=== PATIENT | male | born 1960 | race Caucasian/White ===

== ENCOUNTER 2017-12-16 07:11 | Inpatient (IN) | payer BC, OTHER ==
[~2017-12-16] VITALS: Ht 182.9 cm; Wt 114.4 kg
[2017-12-16] MEDS ORDERED: SODIUM CHLORIDE 0.9% 1000ML 1,000 ML IV STA (07:24)
[2017-12-16] MEDS ORDERED: DILTIAZEM BOLUS / DRIP IV STA (07:24)
[2017-12-16 07:31] LABS: BASO % 0.2 %; BASO ABS # 0.02 K/uL (0-0.2); EOS % 0.4 %; EOS ABS # 0.05 K/uL (0-0.5); HEMATOCRIT 46.2 % (42-52); HEMOGLOBIN 16.2 g/dL (14.0-18.0); IG# 0.03 K/uL (0.00-0.02); LYMPH % 15.5 %; LYMPH ABS # 1.97 K/uL (1.2-3.4); MEAN CELL VOLUME 101.1 fL (80-100); MEAN CORPUSCULAR HEMOGLOBIN 35.4 pg (25-34); MEAN CORPUSCULAR HGB CONC 35.1 g/dl (32-36); MEAN PLATELET VOLUME 9.7 fL (7.4-10.4); MONO % 7.8 %; NEUT % 75.9 %; NEUT ABS # 9.67 K/uL (1.4-6.5); PLATELET COUNT 178 K/uL (130-400); RED CELL DISTRIBUTION WIDTH CV 13.9 % (11.5-14.5); RED CELL DISTRIBUTION WIDTH SD 51.1 fL (36.4-46.3); WHITE BLOOD COUNT 12.74 K/uL (4.8-10.8)
[2017-12-16] MEDS ORDERED: DICL-201 PO (07:37)
--- NOTE | 2017-12-16 07:40 | DIAGNOSTIC IMAGING REPORT ---
CHEST ONE VIEW PORTABLE CLINICAL HISTORY: Atypical chest pain COMPARISON STUDY: No previous studies for comparison. FINDINGS: The heart is mildly enlarged. There is mild elevation of the interstitium. This is likely accentuated by the patient's body habitus. There is no lobar consolidation. There are no pleural effusions. There is no overt failure. IMPRESSION: 1. Mild cardiomegaly 2. No evidence of focal pulmonary consolidation 3. Slight interstitial prominence, likely related to technical factors given the patient's body habitus Electronically signed by: Medardo Parker M.D. 12/16/2017 7:39 AM Dictated Date/Time: 12/16/2017 7:38 AM
[2017-12-16] MEDS ORDERED: DILTIAZEM HCL 5 MG/ML 5 ML VIAL BOLUS/OMNI IV ONE (07:45)
[2017-12-16 07:47] LABS: ALBUMIN 4.4 gm/dl (3.4-5.0); ALT/SGPT 118 U/L (12-78); AST/SGOT 57 U/L (15-37); BLOOD UREA NITROGEN 20 mg/dl (7-18); CALCIUM 9.4 mg/dl (8.5-10.1); CARBON DIOXIDE 24 mmol/L (21-32); CREATININE 1.27 mg/dl (0.60-1.40); GLUCOSE 132 mg/dl (70-99); POTASSIUM 4.4 mmol/L (3.5-5.1); SODIUM 135 mmol/L (136-145)
[2017-12-16] MEDS: DILTIAZEM HCL INJ 125 MG in DEXTROSE 5% 100ML IV PRN ×3 (07:49→08:43)
[2017-12-16 07:52] LABS: ALKALINE PHOSPHATASE 84 U/L (45-117); TOTAL PROTEIN 8.4 gm/dl (6.4-8.2)
[2017-12-16] MEDS ORDERED: ACETAMINOPHEN 325 MG TAB PO PRN (09:00)
[2017-12-16] MEDS ORDERED: MAGNESIUM HYDROXIDE SUSP 30 ML UDC PO PRN (09:00)
[2017-12-16] MEDS ORDERED: ONDANSETRON INJ 2 MG/ML 2 ML VIAL IV PRN (09:00)
[2017-12-16] MEDS ORDERED: MoRPHine SULFATE 2 MG/ML CARP IV PRN (09:15)
--- NOTE | 2017-12-16 09:34 | DIAGNOSTIC IMAGING REPORT ---
ULTRASOUND RIGHT UPPER QUADRANT ABDOMEN CLINICAL HISTORY: Automated hepatic transaminases. COMPARISON STUDY: Abdominal CT dated 12/10/2010. TECHNIQUE: Real-time, grayscale, and color flow sonography of the right upper quadrant of the abdomen was performed. Images are reviewed in the transverse and longitudinal planes. FINDINGS: Liver: The liver is enlarged and demonstrates heterogeneously increased echotexture consistent with severe hepatic steatosis. Note that this degrades acoustic penetration of the liver. There is no intrahepatic biliary ductal dilatation. The main portal vein is patent. Gallbladder: The gallbladder is normal in appearance. No gallstones are identified. There is no gallbladder wall thickening or pericholecystic fluid. A sonographic Guillermo's sign is reportedly absent. The common bile duct measures up to 0.4 cm in diameter. Pancreas: Not well visualized due to overlying bowel gas. Right kidney: Survey images of the right kidney demonstrate normal size and echotexture. There is no hydronephrosis. Ascites: None. IMPRESSION: 1. Hepatomegaly and severe hepatic steatosis. 2. No gallstones are identified. Electronically signed by: Yoni Medina M.D. 12/16/2017 9:33 AM Dictated Date/Time: 12/16/2017 9:32 AM
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
[2017-12-16] MEDS ORDERED: PERFLUTREN LIPID MICROSPHERE (DEFINITY) IV ONE (11:30)
[2017-12-16 11:57] LABS: PTT PATIENT 25.7 SECONDS (21.0-31.0)
[2017-12-16 12:00] VITALS: BP 135/84; PULSE 66; TEMP 37; O2SAT 91; Ht 182.9 cm; Wt 114.4 kg
[2017-12-16] MEDS: HEPARIN 25,000 UNIT/500ML D5W 500 ML IV SCH ×2 (12:07→19:15)
[2017-12-16] MEDS: METOPROLOL TARTRATE 1 MG/ML VIAL IV PRN ×2 (12:19→16:46)
[2017-12-16] MEDS: METOPROLOL TARTRATE 25 MG TAB PO SCH ×2 (12:32→20:00)
[2017-12-16 14:06] LABS: CKMB 6.1 ng/ml (0.5-3.6)
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
[2017-12-16 15:18] VITALS: BP 110/71; PULSE 91; TEMP 37; O2SAT 91
[2017-12-16] MEDS: NITROGLYCERIN 0.4 MG SL PER TAB CHARGE SL PRN ×3 (16:13→22:43)
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
[2017-12-16 18:35] LABS: PTT PATIENT 38.9 SECONDS (21.0-31.0)
[2017-12-16] MEDS ORDERED: ALUMINUM/MAGNESIUM SUSP 30 ML UDC ONE (18:37)
[2017-12-16] MEDS: HEPARIN IV BOLUS 8,000 UNIT in SYRINGE 0 ML IV ONE (19:45)
[2017-12-16] MEDS ORDERED: DIGOXIN IV 250 MCG in SYRINGE 9 ML IV SCH (21:15)
[2017-12-16] MEDS ORDERED: TRAMADOL HCL 50 MG TAB PO PRN (21:15)
[2017-12-16] MEDS: DILTIAZEM HCL 5 MG/ML 5 ML VIAL ONE ×2 (21:45→22:37)
[2017-12-16 21:48] VITALS: BP 109/78; PULSE 133
[2017-12-16 21:51] VITALS: BP 114/79; PULSE 109
[2017-12-16 22:05] VITALS: BP 118/76; PULSE 113
[2017-12-16] MEDS ORDERED: LORAZEPAM 2 MG/ML 1 ML VIAL IV PRN (22:15)
[2017-12-16] MEDS ORDERED: LORAZEPAM INJ 0.5 MG in SYRINGE 0.75 ML IV PRN (22:30)
[2017-12-16] MEDS: SODIUM CHLORIDE 0.9% 1000ML 1,000 ML IV SCH (22:38)
[2017-12-16 22:39] LABS: BLOOD UREA NITROGEN 19 mg/dl (7-18); CALCIUM 8.8 mg/dl (8.5-10.1); CARBON DIOXIDE 29 mmol/L (21-32); CREATININE 1.37 mg/dl (0.60-1.40); GLUCOSE 128 mg/dl (70-99); POTASSIUM 4.2 mmol/L (3.5-5.1); SODIUM 135 mmol/L (136-145)
[2017-12-16] MEDS ORDERED: DIGOXIN IV 250 MCG in SYRINGE 9 ML IV ONE (22:45)
[2017-12-16] MEDS ORDERED: ASPIRIN 81 MG ECTAB PO STA (22:54)
--- NOTE | 2017-12-16 22:55 | Progress Note ---
Internal Med Progress Note Date of Service: Dec 16, 2017. Provider Documentation: Substernal tightness from 9-11 PM during episode of rapid A. fib Intermittent relief with nitroglycerin IVF, intermittent doses of Digoxin and Cardizem given for additional rate control along with maintenance beta-real. CR 130s SBP 90-120s Multiple EKGs similar to 12/17 1020AM EKG Troponin negative AP Chest pain relieved by nitroglycerin in the setting of rapid A. fib ? Possible ACS Aspirin for CAD prevention for now. Titrate beta-real. Continue IV heparin. Will relay to AM provider. Vital Signs: Date Time Temp Pulse Resp B/P (MAP) Pulse Ox O2 Delivery O2 Flow Rate FiO2 12/17/17 09:03 92 Room Air 4.0 12/17/17 08:00 92 Room Air 12/17/17 07:50 36.8 102 16 126/68 (87) 92 Room Air 12/17/17 06:06 37.0 112 17 146/86 (106) 95 Nasal Cannula 4.0 12/17/17 04:00 Room Air 12/17/17 01:44 122 131/81 12/17/17 00:09 36.8 100 19 127/80 (96) 95 Nasal Cannula 4.0 12/17/17 00:01 Room Air 12/16/17 22:50 120 12/16/17 22:05 113 118/76 (90) 12/16/17 21:51 109 114/79 (91) 12/16/17 21:48 133 109/78 (88) 12/16/17 20:00 Room Air 12/16/17 16:46 131 110/78 12/16/17 16:00 Room Air 12/16/17 15:18 37.0 91 18 110/71 (84) 91 12/16/17 12:19 135 130/72 12/16/17 12:00 37.0 66 18 135/84 91 Room Air 12/16/17 10:53 36.8 105 21 106/76 95 12/16/17 10:31 106/76 12/16/17 10:17 112/75 12/16/17 10:14 105 21 95 Nasal Cannula 3.0 12/16/17 10:09 111/66 12/16/17 10:06 100 11 94 Nasal Cannula 3.0 12/16/17 10:01 97/68 Lab Results: Results Past 24 Hours Test 12/16/17 13:33 12/16/17 18:02 12/16/17 22:15 12/17/17 01:51 Range/Units Creatine Kinase MB 6.1 0.5-3.6 ng/ml Creatine Kinase MB Ratio 0-3.0 Troponin I < 0.015 < 0.015 0-0.045 ng/ml Activated Partial Thromboplast Time 38.9 114.8 21.0-31.0 SECONDS Partial Thromboplastin Ratio 1.5 4.4 Sodium Level 135 136-145 mmol/L Potassium Level 4.2 3.5-5.1 mmol/L Chloride Level 102 98-107 mmol/L Carbon Dioxide Level 29 21-32 mmol/L Anion Gap 5.0 3-11 mmol/L Blood Urea Nitrogen 19 7-18 mg/dl Creatinine 1.37 0.60-1.40 mg/dl Est Creatinine Clear Calc Drug Dose 79.9 ml/min Estimated GFR () 66.4 Estimated GFR (Non- 57.2 BUN/Creatinine Ratio 14.1 10-20 Random Glucose 128 70-99 mg/dl Calcium Level 8.8 8.5-10.1 mg/dl Magnesium Level 2.2 1.8-2.4 mg/dl Lipase 165 73-393 U/L Test 12/17/17 06:51 12/17/17 09:32 Range/Units White Blood Count 9.57 4.8-10.8 K/uL Red Blood Count 4.15 4.7-6.1 M/uL Hemoglobin 14.4 14.0-18.0 g/dL Hematocrit 42.6 42-52 % Mean Corpuscular Volume 102.7 80-100 fL Mean Corpuscular Hemoglobin 34.7 25-34 pg Mean Corpuscular Hemoglobin Concent 33.8 32-36 g/dl Platelet Count 152 130-400 K/uL Mean Platelet Volume 9.8 7.4-10.4 fL Neutrophils (%) (Auto) 57.1 % Lymphocytes (%) (Auto) 32.4 % Monocytes (%) (Auto) 9.5 % Eosinophils (%) (Auto) 0.6 % Basophils (%) (Auto) 0.2 % Neutrophils # (Auto) 5.46 1.4-6.5 K/uL Lymphocytes # (Auto) 3.10 1.2-3.4 K/uL Monocytes # (Auto) 0.91 0.11-0.59 K/uL Eosinophils # (Auto) 0.06 0-0.5 K/uL Basophils # (Auto) 0.02 0-0.2 K/uL RDW Standard Deviation 52.4 36.4-46.3 fL RDW Coefficient of Variation 14.1 11.5-14.5 % Immature Granulocyte % (Auto) 0.2 % Immature Granulocyte # (Auto) 0.02 0.00-0.02 K/uL Sodium Level 135 136-145 mmol/L Potassium Level 4.4 3.5-5.1 mmol/L Chloride Level 103 98-107 mmol/L Carbon Dioxide Level 29 21-32 mmol/L Anion Gap 3.0 3-11 mmol/L Blood Urea Nitrogen 16 7-18 mg/dl Creatinine 1.14 0.60-1.40 mg/dl Est Creatinine Clear Calc Drug Dose 94.5 ml/min Estimated GFR () 82.9 Estimated GFR (Non- 71.5 BUN/Creatinine Ratio 13.6 10-20 Random Glucose 103 70-99 mg/dl Estimated Average Glucose 131 mg/dl Hemoglobin A1c 6.2 4.5-5.6 % Calcium Level 8.3 8.5-10.1 mg/dl Magnesium Level 2.2 1.8-2.4 mg/dl Total Bilirubin 1.4 0.2-1 mg/dl Direct Bilirubin 0.5 0-0.2 mg/dl Aspartate Amino Transf (AST/SGOT) 52 15-37 U/L Alanine Aminotransferase (ALT/SGPT) 114 12-78 U/L Alkaline Phosphatase 75 45-117 U/L Troponin I < 0.015 0-0.045 ng/ml Total Protein 7.7 6.4-8.2 gm/dl Albumin 3.6 3.4-5.0 gm/dl Triglycerides Level 109 0-150 mg/dl Cholesterol Level 133 0-200 mg/dl HDL Cholesterol 35 mg/dl LDL Cholesterol, Calculated 76 mg/dl VLDL Cholesterol, Calculated 22 mg/dl Cholesterol/HDL Ratio 3.8
[2017-12-16] MEDS ORDERED: PROCHLORPERAZINE INJ 5 MG in SYRINGE 4 ML IV PRN (23:15)
[2017-12-16] MEDS ORDERED: SODIUM CHLORIDE 0.9% 250ML 250 ML IV ONE (23:30)
[2017-12-16 23:42] LABS: LIPASE 165 U/L (73-393)
[2017-12-17] VITALS (11 sets, daily range): BP systolic 126–149; BP diastolic 68–94; PULSE 74–112; TEMP 36.8–37.4; O2SAT 92–98
[2017-12-17] MEDS: METOPROLOL TARTRATE 1 MG/ML VIAL IV PRN (01:44)
[2017-12-17 02:26] LABS: PTT PATIENT 114.8 SECONDS (21.0-31.0)
[2017-12-17] MEDS: METOPROLOL TARTRATE 25 MG TAB PO SCH (03:41)
[2017-12-17] MEDS ORDERED: METOPROLOL TARTRATE 25 MG TAB PO ONE (05:01)
[2017-12-17 07:03] LABS: BASO % 0.2 %; BASO ABS # 0.02 K/uL (0-0.2); EOS % 0.6 %; EOS ABS # 0.06 K/uL (0-0.5); HEMATOCRIT 42.6 % (42-52); HEMOGLOBIN 14.4 g/dL (14.0-18.0); IG# 0.02 K/uL (0.00-0.02); LYMPH % 32.4 %; MEAN CELL VOLUME 102.7 fL (80-100); MEAN CORPUSCULAR HEMOGLOBIN 34.7 pg (25-34); MEAN CORPUSCULAR HGB CONC 33.8 g/dl (32-36); MEAN PLATELET VOLUME 9.8 fL (7.4-10.4); MONO % 9.5 %; MONO ABS # 0.91 K/uL (0.11-0.59); NEUT % 57.1 %; NEUT ABS # 5.46 K/uL (1.4-6.5); PLATELET COUNT 152 K/uL (130-400); RED CELL DISTRIBUTION WIDTH CV 14.1 % (11.5-14.5); RED CELL DISTRIBUTION WIDTH SD 52.4 fL (36.4-46.3); WHITE BLOOD COUNT 9.57 K/uL (4.8-10.8)
[2017-12-17 07:34] LABS: ALBUMIN 3.6 gm/dl (3.4-5.0); ALT/SGPT 114 U/L (12-78); BLOOD UREA NITROGEN 16 mg/dl (7-18); CALCIUM 8.3 mg/dl (8.5-10.1); CARBON DIOXIDE 29 mmol/L (21-32); CHOLESTEROL 133 mg/dl (0-200); CREATININE 1.14 mg/dl (0.60-1.40); GLUCOSE 103 mg/dl (70-99); POTASSIUM 4.4 mmol/L (3.5-5.1); SODIUM 135 mmol/L (136-145)
[2017-12-17 07:37] LABS: ALKALINE PHOSPHATASE 75 U/L (45-117); AST/SGOT 52 U/L (15-37); LDL CHOLESTEROL CALCULATED 76 mg/dl; TOTAL PROTEIN 7.7 gm/dl (6.4-8.2)
[2017-12-17] MEDS ORDERED: CEROVITE ADV FORMULA TAB PO SCH (09:00)
[2017-12-17] MEDS ORDERED: ASPIRIN 81 MG ECTAB PO SCH (09:00)
[2017-12-17] MEDS ORDERED: THIAMINE HCL 100 MG TAB PO SCH (09:00)
[2017-12-17 09:11] LABS: HEMOGLOBIN A1C 6.2 % (4.5-5.6)
[2017-12-17 10:05] LABS: PTT PATIENT 59.3 SECONDS (21.0-31.0)
[2017-12-17] MEDS ORDERED: PROPOFOL IV EMULSION 10 MG/ML 20 ML VIAL IV ONE (13:43)
--- NOTE | 2017-12-17 14:07 | Cardiology Procedure Brief Nt ---
Preliminary Cardiology Note Procedure Date Dec 17, 2017. Pre-Procedure Diagnosis Atrial flutter Post-Procedure Diagnosis Successful synchronized electrical cardioversion Procedure(s) Performed Successful synchronized electrical cardioversion Flight/Transport Nurse Sriram Watch Repairer(s) None Estimated Blood Loss None Preliminary Findings After informed consent obtained, patient sedated per anesthesia consult. Successful synchronized electrical cardioversion was performed using single 125 J countershock. Patient aroused, tolerated well. Recommendations Medical management Fluids (cc crystalloids) 75cc Specimens None Complication(s) None Disposition PCU
--- NOTE | 2017-12-17 14:16 | Anesthesiology Progress Note ---
Anesthesia Post Op Note Date & Time Dec 17, 2017 at 14:16 Vital Signs Pain Intensity: 0 Vital Signs Past 12 Hours Date Time Temp Pulse Resp B/P (MAP) Pulse Ox O2 Delivery O2 Flow Rate FiO2 12/17/17 14:13 77 18 111/79 (90) 91 Room Air 12/17/17 14:03 69 18 130/63 (85) 96 Nasal Cannula 3 12/17/17 14:00 74 18 128/68 94 Nasal Cannula 6 12/17/17 13:55 74 18 149/94 97 Nasal Cannula 6 12/17/17 12:00 98 Nasal Cannula 2.0 12/17/17 12:00 78 17 139/89 (106) 95 Nasal Cannula 2.0 12/17/17 09:03 92 Room Air 4.0 12/17/17 08:00 92 Room Air 12/17/17 07:50 36.8 102 16 126/68 (87) 92 Room Air 12/17/17 06:06 37.0 112 17 146/86 (106) 95 Nasal Cannula 4.0 12/17/17 04:00 Room Air Notes Mental Status: alert / awake / arousable, participated in evaluation Pt Amnestic to Procedure: Yes Nausea / Vomiting: adequately controlled Pain: adequately controlled Airway Patency, RR, SpO2: stable & adequate BP & HR: stable & adequate Hydration State: stable & adequate Anesthetic Complications: no major complications apparent
[2017-12-17] MEDS ORDERED: ATROPINE SULFATE 0.1 MG/ML 5ML SYR IV PRN (14:30)
[2017-12-17] MEDS ORDERED: EpHEDrine SULFATE INJ 50 MG/ML AMP IV PRN (14:30)
[2017-12-17] MEDS: HEPARIN 25,000 UNIT/500ML D5W 500 ML IV SCH (15:11)
[2017-12-17] MEDS: SODIUM CHLORIDE 0.9% 1000ML 1,000 ML IV SCH (15:11)
--- NOTE | 2017-12-17 16:00 | PROGRESS NOTE ---
DATE: 12/17/2017 CARDIOLOGY CONSULTATION FOLLOWUP NOTE SUBJECTIVE: The patient seen status post synchronized electrical cardioversion, evaluated earlier in the day as well. The patient remained in atrial flutter until time of cardioversion with variable rate and conduction, elevated heart rates with minimal activity. He was subsequently referred and underwent synchronized electrical cardioversion with successful return to sinus rhythm. He is currently asymptomatic. OBJECTIVE: VITAL SIGNS: Heart rate is 74, blood pressure is 111/82. HEENT: Normocephalic, atraumatic. Nares without discharge. Throat was clear. NECK: Supple. There is no jugular venous distention. LUNGS: Clear to auscultation. CARDIOVASCULAR: Regular. There is no S3 gallop. ABDOMEN: Soft. EXTREMITIES: Without cyanosis or clubbing. There are mild chronic stasis changes. There is no edema. LABORATORY DATA: From this morning, cholesterol was 133 and LDL 76, HDL 35. GFR is greater than 60. IMPRESSION: A 57-year-old male with newly noted atrial flutter with rapid ventricular response, now successful with synchronized cardioversion. RECOMMENDATIONS: Would continue anticoagulation with apixaban x30 days. Continue beta real with metoprolol 50 mg twice per day. Anticipate follow up with cardiology in the next 3-4 weeks' time. Encourage to outpatient evaluation of possible underlying sleep disturbances, sleep apnea. The patient is agreeable to plan.
--- NOTE | 2017-12-17 16:15 | ECHOCARDIOGRAM REPORT ---
*NOTICE TO RECEIVING REPUBLICAN AGENCY This information is strictly Confidential and protected under [place] law. [place] law prohibits you from making any further disclosure of this information unless further disclosure is expressly permitted by the written consent of the person to whom it pertains or is authorized by law. A general authorization for the release of medical or other information is not sufficient for this purpose. Hospital accepts no responsibility if the information is made available to any other person, INCLUDING THE PATIENT. Interpretation Summary * Name: LACY ALANIZ Study Date: 12/16/2017 10:33 AM BP: 105/71 mmHg * Patient Location: [facility] HR: 88 * : 1960 (M/d/yyyy) Gender: Male Height: 72 in * Age: 57 yrs Ethnicity: IA Weight: 260 lb * Ordering Physician: Mayito Hull * Referring Physician: Self, Referred * Performed By: Marisela Washington RDCS * * Reason For Study: Atrial Flutter * BSA: 2.4 m2 * -- Conclusions -- * The left ventricle is normal in size. * There is borderline concentric left ventricular hypertrophy. * No regional wall motion abnormalities noted. * Ejection Fraction = 50-55%. * The left atrium is moderately dilated. * There is mild to moderate mitral regurgitation. * There is mild tricuspid regurgitation. Procedure Details * A complete two-dimensional transthoracic echocardiogram was performed (2D, M-mode, Doppler and color flow Doppler). * The study was technically difficult. * The study was technically difficult, but visualization was adequate with the administration of Definity ultrasound contrast. * A contrast injection of Definity was performed to improve assessment of LV function. * Contrast was injected into an intravenous site in the left arm. * One vial of Definity ultrasound contrast was diluted in normal saline to a total volume of 10 ml. A total of '2' ml of solution was administered during imaging. * Lot # [id number] of Definity utilized for procedure. * Expiration date 1APR19. * The attending nurse who injected the contrast agent was Jelly Larson RN. Left Ventricle * The left ventricle is normal in size. * There is borderline concentric left ventricular hypertrophy. * Ejection Fraction = 50-55%. * Left ventricular systolic function is normal. * No regional wall motion abnormalities noted. Right Ventricle * The right ventricle is normal in size and function. Atria * The left atrium is moderately dilated. * Right atrial size is normal. * No ASD detected; PFO is not assessed. Mitral Valve * The mitral valve anatomy is normal. * There is no mitral valve stenosis. * There is mild to moderate mitral regurgitation. Tricuspid Valve * The tricuspid valve anatomy is normal. * There is no tricuspid stenosis. * There is mild tricuspid regurgitation. * Doppler findings do not suggest pulmonary hypertension. Aortic Valve * The aortic valve is trileaflet. * No hemodynamically significant valvular aortic stenosis. * No aortic regurgitation is present. Pulmonic Valve * The pulmonic valve is not well visualized. Great Vessels * The aortic root is normal size. Pericardium/Pleural * There is no pericardial effusion. Great Vessels * Normal inferior vena cava diameter and respiratory variation suggests normal central venous pressure. MMode 2D Measurements and Calculations IVSd 0.96 cm IVSs 1.5 cm LVIDd 5.6 cm LVIDs 4.0 cm LVPWd 0.98 cm LVPWs 1.6 cm IVS/LVPW 0.99 FS 27.7 % EDV(Teich) 152.2 ml ESV(Teich) 71.4 ml EF(Teich) 53.1 % EDV(cubed) 173.5 ml ESV(cubed) 65.7 ml EF(cubed) 62.2 % % IVS thick 52.9 % % LVPW thick 65.5 % LV mass(C)d 209.6 grams LV mass(C)dI 88.0 grams/m\S\2 LV mass(C)s 246.7 grams LV mass(C)sI 103.6 grams/m\S\2 SV(Teich) 80.8 ml SI(Teich) 33.9 ml/m\S\2 SV(cubed) 107.8 ml SI(cubed) 45.3 ml/m\S\2 Ao root diam 3.6 cm Ao root area 10.3 cm\S\2 ACS 2.3 cm LA dimension 5.2 cm LA/Ao 1.4 LVAd ap4 37.3 cm\S\2 LVLd ap4 8.4 cm EDV(MOD-sp4) 136.2 ml EDV(sp4-el) 140.4 ml LVAs ap4 22.9 cm\S\2 LVLs ap4 7.4 cm ESV(MOD-sp4) 60.6 ml ESV(sp4-el) 60.2 ml EF(MOD-sp4) 55.5 % EF(sp4-el) 57.1 % LVAd ap2 37.5 cm\S\2 LVLd ap2 8.1 cm EDV(MOD-sp2) 145.7 ml EDV(sp2-el) 147.9 ml LVAs ap2 25.2 cm\S\2 LVLs ap2 7.6 cm ESV(MOD-sp2) 73.4 ml ESV(sp2-el) 71.0 ml EF(MOD-sp2) 49.6 % EF(sp2-el) 52.0 % LVLd %diff -4.53 % EDV(MOD-bp) 141.4 ml LVLs %diff 2.5 % ESV(MOD-bp) 67.6 ml EF(MOD-bp) 52.2 % SV(MOD-sp4) 75.6 ml SI(MOD-sp4) 31.7 ml/m\S\2 SV(MOD-sp2) 72.3 ml SI(MOD-sp2) 30.4 ml/m\S\2 SV(MOD-bp) 73.8 ml SI(MOD-bp) 31.0 ml/m\S\2 SV(sp4-el) 80.2 ml SI(sp4-el) 33.7 ml/m\S\2 SV(sp2-el) 76.9 ml SI(sp2-el) 32.3 ml/m\S\2 Doppler Measurements and Calculations MV E max faviola 128.8 cm/sec MV dec time 0.25 sec Ao V2 max 138.8 cm/sec Ao max PG 7.7 mmHg Ao max PG (full) 4.2 mmHg LV V1 max PG 3.5 mmHg LV V1 max 93.9 cm/sec PA V2 max 77.6 cm/sec PA max PG 2.4 mmHg TR max faviola 235.3 cm/sec
--- NOTE | 2017-12-17 16:33 | CARDIOVERSION ---
DATE OF OPERATION: 12/16/2017 SYNCHRONIZED ELECTRICAL CARDIOVERSION REPORT INDICATIONS: New onset atrial flutter with difficult to control ventricular response rates. PROCEDURE: After procedure and risks were explained in detail, informed consent was obtained. The patient was sedated via anesthesia consultation with continuous heart rate, blood pressure and oxygen saturation monitoring, End-tidal CO2 observation. After sedation, the patient received single 125 joule biphasic synchronized shock with successful conversion to sinus rhythm. Post-procedure, the patient's EKG demonstrated sinus bradycardia. No QT prolongation, no ST-segment changes. The patient aroused having tolerated well. RECOMMENDATIONS: The patient will be managed medically. The patient to be continued on metoprolol 50 mg twice per day, 30-day course of anticoagulation recommended with apixaban. Anticipate followup cardiology in 3-4 weeks' time. Would recommend sleep apnea evaluation given history of significant sleep disturbances by the patient's note. I attest to the content of the Intraoperative Record and any orders documented therein. Any exception s are noted below.
[2017-12-17] MEDS ORDERED: THIA50TA3 PO (16:38)
[2017-12-17] MEDS ORDERED: METO50TA16 PO (16:38)
[2017-12-17] MEDS ORDERED: APIX1TAB3 PO (16:38)
[2017-12-17] MEDS ORDERED: CNT PO (16:38)
--- NOTE | 2017-12-17 16:42 | Discharge Instructions ---
Discharge Instructions Date of Service Dec 17, 2017. Admission Reason for Admission: Atrial Flutter Discharge Discharge Diagnosis / Problem: ATRIAL FLUTTER Discharge Goals Goal(s): Decrease discomfort, Improve function Activity Recommendations Activity Limitations: resume your previous activity ( TOLERATED. NO STRENOUS ACTIVITY UNTIL SEEN BY CARDIOLOGY) . Instructions / Follow-Up Instructions / Follow-Up FOLLOWUP WITH FAMILY DOCTOR Jorge L Pereyra ON December AT 1:05PM FOLLOWUP WITH CARDIOLOGY DR.Sheldon Ale Bhatia IN 3-4 WEEKS STRONGLY ADVISE FOR SMOKING AND ALCOHOL CESSATION. NEW MEDICATION: LOPRESSOR(METOPROLOL TARTRATE) 50MG ONE TABLET PO TWICE DAILY ELIQUIS 5MG PO TWICE DAILY FOR ONE MONTH. LAB: LIVER FUNCTION TEST IN 1-2 WEEKS AND FOLLOW RESULTS WITH FAMILY DOCTOR. SLEEP STUDY OUT PATIENT WITH FAMILY DOCTOR REFERRAL. TRY TO AVOID DICLOFENAC SODIUM , ALEVE, MOTRIN, IBUPROFEN OR ANY OTHER NSAIDS PENITENTIARY USE CAN CAUSE GASTRIC ULCERS, KIDNEY FAILURES AND HEART ATTACKS Current Hospital Diet Patient's current hospital diet: AHA Diet (Heart Healthy) Discharge Diet Recommended Diet: AHA Diet (Heart Healthy) Pending Studies Studies pending at discharge: no Laboratory Results Hemoglobin A1c Test 12/17/17 06:51 Range/Units Estimated Average Glucose 131 mg/dl Hemoglobin A1c 6.2 H 4.5-5.6 % Lipid Panel Test 12/17/17 06:51 Range/Units Triglycerides Level 109 0-150 mg/dl Cholesterol Level 133 0-200 mg/dl HDL Cholesterol 35 mg/dl Cholesterol/HDL Ratio 3.8 LDL Cholesterol, Calculated 76 mg/dl Medical Emergencies . Who to Call and When: Medical Emergencies: If at any time you feel your situation is an emergency, please call 911 immediately. . Non-Emergent Contact Non-Emergency issues call your: Primary Care Provider . . "Provider Documentation" section prepared by Mayito Hull. .
--- NOTE | 2017-12-17 18:02 | Progress Note ---
Internal Med Progress Note Date of Service: Dec 17, 2017. Provider Documentation: SUBJECTIVE: resting comfortably Was having chest pains on and off was still in aflutter today morning afebrile 'no nausea or abdominal pain s/p cardioversion and back in sinus rhythm feeling much better after back in sinus rhythm- no chest pains or sob want to go home does not want to stay overnight for nocturnal pulse ox study OBJECTIVE: Vital Signs-as noted below Exam: General-alert and oriented. ENT-Normal hearing Neck-no neck masses Lungs-cta b/l no wheezing no crackles present Heart-S1 and S2 heard irregular rate and rhythm no murmurs Abdomen-Soft bowel sounds present non tender no distension Extremities-trace pedal edema no erythema Neuro-alert and awake moves extremities Lab data as noted below. ASSESSMENT & PLAN: This is a 57-year-old male who presents with chest discomfort and found to have atrial flutter. 1. Rapid aflutter,Chest discomfort possibly from his atrial flutter. The patient was started on Cardizem drip in the ER, but we will place him on p.o. Lopressor and IV Lopressor p.r.n., IV heparin for now. His CHADS2 vascular score is 0. ECHO: * The left ventricle is normal in size. * There is borderline concentric left ventricular hypertrophy. * No regional wall motion abnormalities noted. * Ejection Fraction = 50-55%. * The left atrium is moderately dilated. * There is mild to moderate mitral regurgitation. There is mild tricuspid regurgitation Serial Ce negative d dimer high normal lower extremity Doppler NO DVT Last night 12/16/17 received iv digoxin. Lopressor changed to 50mg po bid and also received iv Lopressor and iv Cardizem received gentle fluids as BP dropped after iv Lopressor. today 12/17/17 s/p successful cardioversion and patient currently in sinus rhythm and chest pain and sob resolved cardiology wants patient to be on eliquis at least fo one month. discharged on Lopressor 50mg bid and eliquis 5mg bid f/u with cardiology in 3-4 weeks 2. Elevated liver function tests. The patient has history of alcoholism and fatty liver. He drinks alcohol only in the weekends, but could be also from hepatic congestion. US shows Hepatomegaly and severe hepatic steatosis. No gallstones are identified.f/u labs with PCP. 3. Osteoarthritis. We will hold diclofenac sodium, Tylenol p.r.n. 4. Alcoholism drinks 6 packs only in the weekends. Monitor for any withdrawal. We will place him on thiamine and folic acid.Advise for quitting alcohol. 5. History of tobacco abuse, will advise to quit smoking. 6. Borderline DM hba1c 6.2 f/u with pcp. Discharged home to followup with PCP and Cardiology Vital Signs: Date Time Temp Pulse Resp B/P (MAP) Pulse Ox O2 Delivery O2 Flow Rate FiO2 12/17/17 16:52 37.4 102 20 94 Room Air 12/17/17 16:00 94 Room Air 12/17/17 15:58 37.4 102 20 128/86 (100) 92 Room Air 12/17/17 14:23 74 18 111/82 (92) 93 Room Air 12/17/17 14:13 77 18 111/79 (90) 91 Room Air 12/17/17 14:03 69 18 130/63 (85) 96 Nasal Cannula 3 12/17/17 14:00 74 18 128/68 94 Nasal Cannula 6 12/17/17 13:55 74 18 149/94 97 Nasal Cannula 6 12/17/17 12:00 98 Nasal Cannula 2.0 12/17/17 12:00 78 17 139/89 (106) 95 Nasal Cannula 2.0 12/17/17 09:03 92 Room Air 4.0 12/17/17 08:00 92 Room Air 12/17/17 07:50 36.8 102 16 126/68 (87) 92 Room Air 12/17/17 06:06 37.0 112 17 146/86 (106) 95 Nasal Cannula 4.0 12/17/17 04:00 Room Air 12/17/17 01:44 122 131/81 12/17/17 00:09 36.8 100 19 127/80 (96) 95 Nasal Cannula 4.0 12/17/17 00:01 Room Air 12/16/17 22:50 120 12/16/17 22:05 113 118/76 (90) 12/16/17 21:51 109 114/79 (91) 12/16/17 21:48 133 109/78 (88) 12/16/17 20:00 Room Air Lab Results: Results Past 24 Hours Test 12/16/17 18:02 12/16/17 22:15 12/17/17 01:51 12/17/17 06:51 Range/Units Activated Partial Thromboplast Time 38.9 114.8 21.0-31.0 SECONDS Partial Thromboplastin Ratio 1.5 4.4 Sodium Level 135 135 136-145 mmol/L Potassium Level 4.2 4.4 3.5-5.1 mmol/L Chloride Level 102 103 98-107 mmol/L Carbon Dioxide Level 29 29 21-32 mmol/L Anion Gap 5.0 3.0 3-11 mmol/L Blood Urea Nitrogen 19 16 7-18 mg/dl Creatinine 1.37 1.14 0.60-1.40 mg/dl Est Creatinine Clear Calc Drug Dose 79.9 94.5 ml/min Estimated GFR () 66.4 82.9 Estimated GFR (Non- 57.2 71.5 BUN/Creatinine Ratio 14.1 13.6 10-20 Random Glucose 128 103 70-99 mg/dl Calcium Level 8.8 8.3 8.5-10.1 mg/dl Magnesium Level 2.2 2.2 1.8-2.4 mg/dl Troponin I < 0.015 < 0.015 0-0.045 ng/ml Lipase 165 73-393 U/L White Blood Count 9.57 4.8-10.8 K/uL Red Blood Count 4.15 4.7-6.1 M/uL Hemoglobin 14.4 14.0-18.0 g/dL Hematocrit 42.6 42-52 % Mean Corpuscular Volume 102.7 80-100 fL Mean Corpuscular Hemoglobin 34.7 25-34 pg Mean Corpuscular Hemoglobin Concent 33.8 32-36 g/dl Platelet Count 152 130-400 K/uL Mean Platelet Volume 9.8 7.4-10.4 fL Neutrophils (%) (Auto) 57.1 % Lymphocytes (%) (Auto) 32.4 % Monocytes (%) (Auto) 9.5 % Eosinophils (%) (Auto) 0.6 % Basophils (%) (Auto) 0.2 % Neutrophils # (Auto) 5.46 1.4-6.5 K/uL Lymphocytes # (Auto) 3.10 1.2-3.4 K/uL Monocytes # (Auto) 0.91 0.11-0.59 K/uL Eosinophils # (Auto) 0.06 0-0.5 K/uL Basophils # (Auto) 0.02 0-0.2 K/uL RDW Standard Deviation 52.4 36.4-46.3 fL RDW Coefficient of Variation 14.1 11.5-14.5 % Immature Granulocyte % (Auto) 0.2 % Immature Granulocyte # (Auto) 0.02 0.00-0.02 K/uL Estimated Average Glucose 131 mg/dl Hemoglobin A1c 6.2 4.5-5.6 % Total Bilirubin 1.4 0.2-1 mg/dl Direct Bilirubin 0.5 0-0.2 mg/dl Aspartate Amino Transf (AST/SGOT) 52 15-37 U/L Alanine Aminotransferase (ALT/SGPT) 114 12-78 U/L Alkaline Phosphatase 75 45-117 U/L Total Protein 7.7 6.4-8.2 gm/dl Albumin 3.6 3.4-5.0 gm/dl Triglycerides Level 109 0-150 mg/dl Cholesterol Level 133 0-200 mg/dl HDL Cholesterol 35 mg/dl LDL Cholesterol, Calculated 76 mg/dl VLDL Cholesterol, Calculated 22 mg/dl Cholesterol/HDL Ratio 3.8 Test 12/17/17 09:32 Range/Units Activated Partial Thromboplast Time 59.3 21.0-31.0 SECONDS Partial Thromboplastin Ratio 2.3
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
[2017-12-17] MEDS ORDERED: METOPROLOL TARTRATE 50 MG TAB PO SCH (21:00)
== END 2017-12-17 17:49 | disposition home or self-care (01) | DRG 310 ==
LOC: C.EDB 07:13 → C.MED 09:03 → CANRESERV 09:26 → ENRESERV 09:26 → C.2E 22:01
PROVIDERS: ADMIT Internal Medicine; ATTEND Internal Medicine
PROC: 5A2204Z Restoration of Cardiac Rhythm, Single (ICD-10-PCS; principal; 2017-12-17 13:26)
DX: I48.92 Unspecified atrial flutter (principal); F17.200 Nicotine dependence, unspecified, uncomplicated; M19.90 Unspecified osteoarthritis, unspecified site; F10.10 Alcohol abuse, uncomplicated; R79.89 Other specified abnormal findings of blood chemistry; E66.9 Obesity, unspecified; Z83.3 Family history of diabetes mellitus; Z80.0 Family history of malignant neoplasm of digestive organs; Z68.34 Body mass index [BMI] 34.0-34.9, adult